=== PATIENT | female | born 1980 | race Caucasian/White ===

== ENCOUNTER 2018-03-01 16:48 | Inpatient (IN) | payer OTHER ==
[~2018-03-01] VITALS: Ht 170.2 cm; Wt 101.2 kg
[2018-03-01 18:05] LABS: BASOPHILS ABSOLUTE AUTO 0.02 K/mm3 (0.00-0.23); BASOPHILS PERCENT AUTO 0 % (0-2); EOSINOPHILS PERCENT AUTO 1 % (0-6); Hematocrit 32.6 % (33.0-51.0); Hemoglobin 10.7 g/dL (11.5-16.0); IMMATURE GRAN ABSOLUTE AUTO 0.04 K/mm3 (0.00-0.10); IMMATURE GRAN PERCENT AUTO 1 % (0-1); LYMPHOCYTES ABSOLUTE AUTO 1.76 K/mm3 (0.84-5.20); LYMPHOCYTES PERCENT AUTO 22 % (21-46); MONOCYTES ABSOLUTE AUTO 0.63 K/mm3 (0.16-1.47); MONOCYTES PERCENT AUTO 8 % (4-13); Mean Corpuscular HGB 28.5 pg (26.0-34.0); Mean Corpuscular HGB Conc 32.8 g/dL (31.5-36.5); Mean Corpuscular Volume 87 fL (80-100); Mean Platelet Volume 11.6 fL (9.1-12.4); NEUTROPHILS ABSOLUTE AUTO 5.52 K/mm3 (1.96-9.15); NEUTROPHILS PERCENT AUTO 69 % (41-73); Platelet Count 110 K/mm3 (150-400); RDW Coefficient Variation 14.5 % (11.7-14.2); RDW Standard Deviation 46.2 fL (35.1-46.3); Red Blood Cell Count 3.75 M/mm3 (3.80-5.20); White Blood Cell Count 8.07 K/mm3 (4.00-11.30)
[2018-03-01] MEDS ORDERED: TUMS ULTRA ST1177 MG PO (18:27)
[2018-03-01] MEDS ORDERED: PRENATAL VITAM1 EAC2 PO (18:27)
[2018-03-01] MEDS ORDERED: Ferrous Sulfat325 M2 PO (18:27)
== END 2018-03-02 19:45 | disposition home or self-care (01) | DRG 782 ==
LOC: BC 16:48
PROVIDERS: Nurse Practitioner Obstetrics & Gynecology
PROC: 3E0P7VZ Introduction of Hormone into Female Reproductive, Via Natural or Artificial Opening (ICD-10-PCS; principal; 2018-03-02)
DX: O62.1 Secondary uterine inertia (principal); Z3A.38 38 weeks gestation of pregnancy
CPT/HCPCS: 36415; 85025; J2210; J2590; J7120

== ENCOUNTER 2018-03-08 12:47 | Inpatient (IN) | payer OTHER ==
[~2018-03-08] VITALS: Ht 170.2 cm; Wt 100.9 kg
[~2018-03-08 12:47] MED LIST: Ferrous Sulfat325 M2 PO; PRENATAL VITAM1 EAC2 PO; TUMS ULTRA ST1177 MG PO
[2018-03-08 18:03] LABS: BASOPHILS ABSOLUTE AUTO 0.02 K/mm3 (0.00-0.23); BASOPHILS PERCENT AUTO 0 % (0-2); EOSINOPHILS ABSOLUTE AUTO 0.12 K/mm3 (0.00-0.68); EOSINOPHILS PERCENT AUTO 1 % (0-6); Hematocrit 34.8 % (33.0-51.0); Hemoglobin 11.4 g/dL (11.5-16.0); IMMATURE GRAN ABSOLUTE AUTO 0.04 K/mm3 (0.00-0.10); IMMATURE GRAN PERCENT AUTO 1 % (0-1); LYMPHOCYTES ABSOLUTE AUTO 1.81 K/mm3 (0.84-5.20); LYMPHOCYTES PERCENT AUTO 22 % (21-46); MONOCYTES PERCENT AUTO 7 % (4-13); Mean Corpuscular HGB 28.3 pg (26.0-34.0); Mean Corpuscular HGB Conc 32.8 g/dL (31.5-36.5); Mean Corpuscular Volume 86 fL (80-100); NEUTROPHILS ABSOLUTE AUTO 5.72 K/mm3 (1.96-9.15); NEUTROPHILS PERCENT AUTO 69 % (41-73); Platelet Count 131 K/mm3 (150-400); RDW Coefficient Variation 14.6 % (11.7-14.2); RDW Standard Deviation 46.2 fL (35.1-46.3); Red Blood Cell Count 4.03 M/mm3 (3.80-5.20); White Blood Cell Count 8.31 K/mm3 (4.00-11.30)
[2018-03-10 06:09] LABS: BASOPHILS ABSOLUTE AUTO 0.05 K/mm3 (0.00-0.23); BASOPHILS PERCENT AUTO 1 % (0-2); EOSINOPHILS ABSOLUTE AUTO 0.21 K/mm3 (0.00-0.68); EOSINOPHILS PERCENT AUTO 2 % (0-6); Hematocrit 33.3 % (33.0-51.0); Hemoglobin 10.9 g/dL (11.5-16.0); IMMATURE GRAN ABSOLUTE AUTO 0.07 K/mm3 (0.00-0.10); IMMATURE GRAN PERCENT AUTO 1 % (0-1); LYMPHOCYTES ABSOLUTE AUTO 2.02 K/mm3 (0.84-5.20); LYMPHOCYTES PERCENT AUTO 23 % (21-46); MONOCYTES ABSOLUTE AUTO 0.74 K/mm3 (0.16-1.47); MONOCYTES PERCENT AUTO 9 % (4-13); Mean Corpuscular HGB 28.3 pg (26.0-34.0); Mean Corpuscular HGB Conc 32.7 g/dL (31.5-36.5); Mean Corpuscular Volume 87 fL (80-100); NEUTROPHILS PERCENT AUTO 65 % (41-73); Platelet Count 122 K/mm3 (150-400); RDW Coefficient Variation 14.5 % (11.7-14.2); RDW Standard Deviation 45.5 fL (35.1-46.3); Red Blood Cell Count 3.85 M/mm3 (3.80-5.20); White Blood Cell Count 8.69 K/mm3 (4.00-11.30)
[2018-03-10] MEDS ORDERED: IBUP800 (09:36)
== END 2018-03-10 10:00 | disposition home or self-care (01) | DRG 775 ==
LOC: BC 12:47
PROVIDERS: Nurse Practitioner Obstetrics & Gynecology
PROC: 10E0XZZ Delivery of Products of Conception, External Approach (ICD-10-PCS; principal; 2018-03-09)
PROC: 3E0P7VZ Introduction of Hormone into Female Reproductive, Via Natural or Artificial Opening (ICD-10-PCS; 2018-03-09)
DX: O32.0XX0 Maternal care for unstable lie, not applicable or unspecified (principal); O69.1XX0 Labor and delivery complicated by cord around neck, with compression, not applicable or unspecified; Z3A.39 39 weeks gestation of pregnancy; Z37.0 Single live birth; Z88.5 Allergy status to narcotic agent; Z82.79 Family history of other congenital malformations, deformations and chromosomal abnormalities
CPT/HCPCS: 36415; 85025; J1885; J2210; J2590; J3010; J7120

== ENCOUNTER 2021-02-15 05:09 | Inpatient (IN) | payer OTHER ==
[~2021-02-15] VITALS: Ht 170.2 cm; Wt 106.5 kg
[~2021-02-15 05:09] MED LIST changes: +IBUP800
[2021-02-15] MEDS ORDERED: OMEGA-3 + VITA200 ML (05:46)
[2021-02-15] MEDS ORDERED: PROBIOTIC1 EA13 (05:46)
[2021-02-15 06:08] LABS: BASOPHILS ABSOLUTE AUTO 0.03 K/mm3 (0.00-0.23); BASOPHILS PERCENT AUTO 0 % (0-2); EOSINOPHILS ABSOLUTE AUTO 0.24 K/mm3 (0.00-0.68); EOSINOPHILS PERCENT AUTO 3 % (0-6); Hemoglobin 11.7 g/dL (11.5-16.0); IMMATURE GRAN ABSOLUTE AUTO 0.06 K/mm3 (0.00-0.10); IMMATURE GRAN PERCENT AUTO 1 % (0-1); LYMPHOCYTES ABSOLUTE AUTO 2.03 K/mm3 (0.84-5.20); LYMPHOCYTES PERCENT AUTO 23 % (21-46); MONOCYTES ABSOLUTE AUTO 0.62 K/mm3 (0.16-1.47); MONOCYTES PERCENT AUTO 7 % (4-13); Mean Corpuscular HGB 27.3 pg (26.0-34.0); Mean Corpuscular HGB Conc 32.5 g/dL (31.5-36.5); Mean Corpuscular Volume 84 fL (80-100); Mean Platelet Volume 12.2 fL (9.1-12.4); NEUTROPHILS ABSOLUTE AUTO 5.76 K/mm3 (1.96-9.15); NEUTROPHILS PERCENT AUTO 66 % (41-73); Platelet Count 107 K/mm3 (150-400); RDW Coefficient Variation 15.1 % (11.7-14.2); RDW Standard Deviation 45.6 fL (35.1-46.3); Red Blood Cell Count 4.28 M/mm3 (3.80-5.20); White Blood Cell Count 8.74 K/mm3 (4.00-11.30)
--- NOTE | 2021-02-15 19:06 | NUR ---
REPORT TO ONCOMING SHIFT. ORDERED TO DO PIT #2 AND ALTERNATE BETWEEN METHERINE AND CYCTOEC PER DIONY. PT EATING DINNER AT THIS TIME AND THEN WANTS TO GET UP AND SHOWER. NO OTHER COMPLAINTS
[2021-02-16 06:12] LABS: Hematocrit 36.2 % (33.0-51.0); Hemoglobin 11.4 g/dL (11.5-16.0); Mean Corpuscular HGB 26.9 pg (26.0-34.0); Mean Corpuscular HGB Conc 31.5 g/dL (31.5-36.5); Mean Corpuscular Volume 85 fL (80-100); Mean Platelet Volume 12.4 fL (9.1-12.4); Platelet Count 112 K/mm3 (150-400); RDW Standard Deviation 46.4 fL (35.1-46.3); Red Blood Cell Count 4.24 M/mm3 (3.80-5.20); White Blood Cell Count 11.97 K/mm3 (4.00-11.30)
[2021-02-16] MEDS ORDERED: IBUP800 (10:34)
--- NOTE | 2021-02-16 17:25 | NUR ---
1725: D/C HOME WITH BABY
== END 2021-02-16 17:25 | disposition home or self-care (01) | DRG 807 ==
LOC: OBS 05:09 → BC 05:10 → OBS 05:17 → BC 05:20
PROVIDERS: ADMIT Nurse Practitioner Obstetrics & Gynecology
PROC: 10E0XZZ Delivery of Products of Conception, External Approach (ICD-10-PCS; principal; 2021-02-16)
PROC: 10907ZC Drainage of Amniotic Fluid, Therapeutic from Products of Conception, Via Natural or Artificial Opening (ICD-10-PCS; 2021-02-16)
PROC: 3E033VJ Introduction of Other Hormone into Peripheral Vein, Percutaneous Approach (ICD-10-PCS; 2021-02-16)
DX: O99.02 Anemia complicating childbirth (principal); Z37.0 Single live birth; D64.9 Anemia, unspecified; O99.52 Diseases of the respiratory system complicating childbirth; Z3A.39 39 weeks gestation of pregnancy; J45.909 Unspecified asthma, uncomplicated; Z88.5 Allergy status to narcotic agent; Z79.899 Other long term (current) drug therapy; Z20.822 Contact with and (suspected) exposure to COVID-19
CPT/HCPCS: 36415; 85025; 85027; 86850; 86900; 86901; A9270; J1885; J2210; J2405; J2590; J3010; J7120; U0004

== ENCOUNTER → 2024-01-18 | Outpatient (CLI) | payer OTHER ==
[~2024-01-18] MED LIST changes: +OMEGA-3 + VITA200 ML; +PROBIOTIC1 EA13
[2024-01-18 14:29] LABS: Hematocrit 33.4 % (33.0-51.0); Hemoglobin 10.8 g/dL (11.5-16.0)
== END ==
LOC: LAB 13:22 → LAB SHORT 13:22
PROVIDERS: Registered Nurse Community Health
DX: Z34.93 Encounter for supervision of normal pregnancy, unspecified, third trimester (principal)
CPT/HCPCS: 82950; 85014; 85018

== ENCOUNTER → 2024-01-25 | Outpatient (CLI) | payer OTHER | END | disposition home or self-care (01) | LOC: LAB SHORT 12:44 → LAB 12:44 | DX: Z34.93 Encounter for supervision of normal pregnancy, unspecified, third trimester (principal) | CPT/HCPCS: 82950 ==

== ENCOUNTER → 2024-03-03 | Outpatient (CLI) | payer OTHER | LOC: LAB 14:49 → LAB SHORT 14:49 | DX: Z34.93 Encounter for supervision of normal pregnancy, unspecified, third trimester (principal) | CPT/HCPCS: 87081; 87150 ==

== ENCOUNTER → 2024-03-10 | Outpatient (CLI) | payer OTHER ==
[2024-03-12 16:49] LABS: APTIMA MEDIA TYPE Urine; C. TRACHOMATIS BY TMA Negative (Negative); N. GONORRHOEAE BY TMA Negative (Negative); SPECIMEN SOURCE Urine
== END ==
LOC: LAB 14:49 → LAB SHORT 14:49
PROVIDERS: Registered Nurse Community Health
DX: Z34.93 Encounter for supervision of normal pregnancy, unspecified, third trimester (principal)
CPT/HCPCS: 87491; 87591

== ENCOUNTER 2024-04-06 19:04 | Inpatient (IN) | payer OTHER ==
[~2024-04-06] VITALS: Ht 167.6 cm; Wt 109.0 kg
[2024-04-06 19:06] VITALS: BP 136/73
[2024-04-06] MEDS ORDERED: FentaNYL 2mcg/ml-Bup 0.1% Epd 250 ML EPI PRN (19:35)
[2024-04-06] MEDS ORDERED: Tranexamic Acid 100 ML IV SCH (19:35)
[2024-04-06] MEDS ORDERED: Carboprost Tromethamine 250 MCG/ML 1ML Amp IM PRN (19:35)
[2024-04-06] MEDS ORDERED: Misoprostol 200 MCG Tab PR PRN ×2 (19:35→23:30)
[2024-04-06] MEDS ORDERED: Acetaminophen 500 MG Tab PO PRN (19:35)
[2024-04-06] MEDS ORDERED: Oxytocin 10 Unit / ML Vial IM PRN (19:35)
[2024-04-06] MEDS ORDERED: Misoprostol 200 MCG Tab BC PRN (19:35)
[2024-04-06] MEDS ORDERED: Lactated Ringer's 1,000 ML IV PRN (19:35)
[2024-04-06] MEDS ORDERED: OXYTOCIN/RINGER'S LACTATE 500 ML IV PRN (19:35)
[2024-04-06] MEDS ORDERED: Lactated Ringer's 1,000 ML IV SCH ×4 (19:35→23:25)
[2024-04-06] MEDS ORDERED: ePHEDrine Sulfate 50 MG/ML 1ML Injection XX PRN (19:35)
[2024-04-06] MEDS ORDERED: Ondansetron HCl 2 MG / ML 2ML Vial IV PRN (19:35)
[2024-04-06] MEDS ORDERED: Methylergonovine Maleate 0.2MG / ML 1ML Amp IM PRN ×2 (19:35→23:25)
[2024-04-06] MEDS ORDERED: FentaNYL Citrate 50 MCG/ML 2 ML Injection IV PRN (19:40)
[2024-04-06] MEDS ORDERED: Calcium Carbonate 500 MG Tab Chew PO PRN (19:40)
[2024-04-06 20:15] LABS: BASOPHILS ABSOLUTE AUTO 0.01 K/mm3 (0.00-0.23); BASOPHILS PERCENT AUTO 0 % (0-2); EOSINOPHILS ABSOLUTE AUTO 0.12 K/mm3 (0.00-0.68); EOSINOPHILS PERCENT AUTO 1 % (0-6); Hematocrit 34.9 % (33.0-51.0); Hemoglobin 11.5 g/dL (11.5-16.0); IMMATURE GRAN ABSOLUTE AUTO 0.04 K/mm3 (0.00-0.10); IMMATURE GRAN PERCENT AUTO 0 % (0-1); LYMPHOCYTES ABSOLUTE AUTO 2.16 K/mm3 (0.84-5.20); LYMPHOCYTES PERCENT AUTO 23 % (21-46); MONOCYTES ABSOLUTE AUTO 0.77 K/mm3 (0.16-1.47); MONOCYTES PERCENT AUTO 8 % (4-13); Mean Corpuscular HGB 26.6 pg (26.0-34.0); Mean Corpuscular Volume 81 fL (80-100); Mean Platelet Volume 11.8 fL (9.1-12.4); NEUTROPHILS ABSOLUTE AUTO 6.28 K/mm3 (1.96-9.15); NEUTROPHILS PERCENT AUTO 67 % (41-73); Platelet Count 120 K/mm3 (150-400); RDW Coefficient Variation 15.6 % (11.7-14.2); RDW Standard Deviation 46.3 fL (35.1-46.3); Red Blood Cell Count 4.32 M/mm3 (3.80-5.20); White Blood Cell Count 9.38 K/mm3 (4.00-11.30)
[2024-04-06 20:20] VITALS: BP 142/69
[2024-04-06 21:47] VITALS: BP 134/72
[2024-04-06 23:01] VITALS: BP 107/57
[2024-04-06] MEDS ORDERED: Ketorolac Tromethamine 30mg Vial IV PRN (23:20)
[2024-04-06] MEDS ORDERED: Witch Hazel/Glycerin PADS TOP PRN ×2 (23:20→23:30)
[2024-04-06 23:21] VITALS: BP 124/58
[2024-04-06] MEDS ORDERED: OxyCODONE 5 mg/Acetamin 325 mg TABLET PO PRN (23:25)
[2024-04-06] MEDS ORDERED: Ibuprofen 400 MG Tab PO PRN (23:25)
[2024-04-06] MEDS ORDERED: Measles/Mumps/Rubella Vaccine 0.5 ML Vial SC ONE (23:25)
[2024-04-06] MEDS ORDERED: Acetaminophen 325 MG TABLET PO PRN (23:25)
[2024-04-06] MEDS ORDERED: Benzocaine Topical Anesthetic Spray 60GM TOP PRN ×2 (23:30→23:35)
[2024-04-06] MEDS ORDERED: Docusate Sodium 100 MG Cap PO PRN (23:30)
[2024-04-06] MEDS ORDERED: OXYTOCIN/RINGER'S LACTATE 500 ML IV SCH (23:30)
[2024-04-06] MEDS ORDERED: Diphth,Pertuss(Acell),Tet Vac 0.5 ML VIAL IM ONE (23:30)
[2024-04-06] MEDS ORDERED: Lanolin Cream TOP PRN (23:30)
[2024-04-06] MEDS ORDERED: FLU VACC TS2024-25(6MOS UP)/PF 45 MCG/0.5 ML SYRINGE IM ONE (23:30)
[2024-04-06] MEDS ORDERED: Hydrocortisone/Pramoxine Rectal Foam 10 GM PR PRN (23:35)
[2024-04-06] MEDS ORDERED: Oxytocin 10 Unit / ML Vial IM ONE (23:35)
[2024-04-06 23:36] VITALS: BP 120/56
[2024-04-07 01:04] VITALS: BP 133/67
[2024-04-07 03:02] VITALS: BP 122/63
[2024-04-07 05:37] LABS: Hematocrit 33.2 % (33.0-51.0); Hemoglobin 10.9 g/dL (11.5-16.0); Mean Corpuscular HGB 26.7 pg (26.0-34.0); Mean Corpuscular HGB Conc 32.8 g/dL (31.5-36.5); Mean Corpuscular Volume 81 fL (80-100); Mean Platelet Volume 12.3 fL (9.1-12.4); Platelet Count 129 K/mm3 (150-400); RDW Coefficient Variation 15.6 % (11.7-14.2); RDW Standard Deviation 46.6 fL (35.1-46.3); Red Blood Cell Count 4.08 M/mm3 (3.80-5.20); White Blood Cell Count 13.63 K/mm3 (4.00-11.30)
[2024-04-07 07:50] VITALS: BP 121/58
[2024-04-07] MEDS ORDERED: Prenatal Vit/FE Fumarate/FA 1 Tab PO SCH (09:00)
[2024-04-07 12:48] VITALS: BP 140/76
[2024-04-07] MEDS ORDERED: ACET500 PO (13:26)
[2024-04-07] MEDS ORDERED: IBUP800 PO (13:26)
[2024-04-07 16:11] VITALS: BP 137/66
[2024-04-07 19:55] VITALS: BP 122/70
--- NOTE | 2024-04-07 21:10 | NUR ---
PUTTING MOB AT [facility] AND KEEPING A PT UNTIL THE MORNING. RN HAS GIVEN ALL PAPERWORK FOR HER INFORMATION THAT SHE NEEDS FOR . UNABLE TO CREATE APPOINTMENT AT THIS TIME. MOB EDUCATED ON WHAT BEING ON BAORDER STATUS IS LIKE.
--- NOTE | 2024-04-11 10:29 | NUR ---
PPFU - PT NO SHOW FOR TODAY'S APPOINTMENT. THIS RN CALLED, PT STATES SHE HAS BEEN REALLY SICK WITH SINUS CONGESTIONS, DECLINES TO RESCHEDULE, STATES SHE WILL ANSWER QUESTIONS OVER THE PHONE. PT STATES HER MILK IS IN. STATES HAD A BM TODAY AND IS PASSING GAS. STATES VAGINAL BLEEDING IS DECREASING AND PINK IN COLOR. PT DENIES HEADACHE, BLURRED VISION, OR DIZZINESS. PT DENIES SWELLING IN HER EXTREMITED, NUMBNESS OR TINGLING. PT DENIES RED, TENDER, HOT SPOTS TO THE BACK OF THE LEGS AND KNEES. PT STATES SHE IS TAKING HER PNV AND IBUPROFEN. DENIES FURTHER QUESTIOSN OR CONCERNS. HAD F/U APPOINTMENT W/ OB SCHEDULED.
== END 2024-04-07 21:15 | disposition home or self-care (01) | DRG 807 ==
LOC: OBS 19:04 → BC 19:06 → OBS 19:33 → BC 19:34
PROVIDERS: Registered Nurse Community Health; ADMIT Advanced Practice Midwife
PROC: 10E0XZZ Delivery of Products of Conception, External Approach (ICD-10-PCS; principal; 2024-04-06)
PROC: 10907ZC Drainage of Amniotic Fluid, Therapeutic from Products of Conception, Via Natural or Artificial Opening (ICD-10-PCS; 2024-04-06)
PROC: 4A1HXCZ Monitoring of Products of Conception, Cardiac Rate, External Approach (ICD-10-PCS; 2024-04-06)
DX: O48.0 Post-term pregnancy (principal); Z37.0 Single live birth; Z3A.40 40 weeks gestation of pregnancy; O24.429 Gestational diabetes mellitus in childbirth, unspecified control; O77.0 Labor and delivery complicated by meconium in amniotic fluid; O69.81X0 Labor and delivery complicated by cord around neck, without compression, not applicable or unspecified
CPT/HCPCS: 36415; 36416; 82947; 85025; 85027; 86850; 86900; 86901; 86923; A9270; J1885; J2590; J3010